=== PATIENT | female | born 1950 | race African-American/Black ===

== ENCOUNTER 2018-04-21 10:57 | Emergency (ER) | payer OTHER ==
[~2018-04-21] VITALS: Ht 157.5 cm; Wt 56.4 kg
--- NOTE | 2018-04-21 11:03 | NUR ---
NO ANSWER FROM TRIAGE
[2018-04-21] MEDS ORDERED: HYDROCHLOROTHIAZIDE (11:38)
[2018-04-21] MEDS ORDERED: LOVA40TA2 PO (11:38)
[2018-04-21 11:43] LABS: BASOPHILS # (AUTO) 0.05 x10^3/uL (0-0.1); BASOPHILS % (AUTO) 1 % (0-1); EOSINOPHILS # (AUTO) 0.12 x10^3/uL (0-0.4); EOSINOPHILS % (AUTO) 1 % (1-7); LYMPHOCYTES # (AUTO) 2.85 x10^3/uL (1-3.4); LYMPHOCYTES % (AUTO) 33 % (22-44); MD NO; MEAN CORPUSCULAR HEMOGLOBIN 25.7 pg (27.0-34.8); MEAN CORPUSCULAR HGB CONC 31.9 g/dL (32.4-35.8); MEAN CORPUSCULAR VOLUME 80.3 fL (80-100); MEAN PLATELET VOLUME 8.9 fL (7.4-10.4); MONOCYTES # (AUTO) 0.57 x10^3/uL (0.2-0.8); MONOCYTES % (AUTO) 7 % (2-9); NEUTROPHILS % (AUTO) 58 % (42-75); PLATELET COUNT 315 x10^3/uL (130-400); RED BLOOD COUNT 5.17 x10^6/uL (3.82-5.3)
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
[2018-04-21 11:48] LABS: ALBUMIN 3.9 g/dL (3.4-5.0); ANION GAP 7 mmol/L (5-15); CALCIUM 9.2 mg/dL (8.5-10.1); CHLORIDE 103 mmol/L (98-107); CREATININE 1.15 mg/dL (0.55-1.02)
[2018-04-21 12:07] VITALS: BP 133/68
[2018-04-21 12:12] LABS: MICROSCOPIC AUTO
[2018-04-21 12:13] LABS: TROPONIN I < 0.015 ng/mL (0.000-0.045)
[2018-04-21 12:14] LABS: CULTURE INDICATED? YES
--- NOTE | 2018-04-21 12:35 | NUR ---
all results back at this time. chart up for recheck.
[2018-04-21] MEDS ORDERED: POTASSIUM CHLORIDE 20 MEQ TAB.ER.PRT ONE (12:57)
[2018-04-21] MEDS ORDERED: POTASSIUM CHLORIDE 20 MEQ TAB.ER.PRT PO ONE (13:00)
== END 2018-04-21 13:11 | disposition home or self-care (01) ==
LOC: ED 12:01
DX: E87.6 Hypokalemia (principal); R55 Syncope and collapse; R31.29 Other microscopic hematuria; E78.00 Pure hypercholesterolemia, unspecified; I10 Essential (primary) hypertension; Z90.710 Acquired absence of both cervix and uterus
CPT/HCPCS: 36415; 71046; 80048; 81001; 82040; 83880; 84484; 85025; 87086; 93005; 99284